=== PATIENT | female | born 1955 | race African-American/Black ===

== ENCOUNTER → 2017-03-15 | Outpatient (CLI) | payer BC, OTHER ==
--- NOTE | 2017-03-15 10:35 | RAD ---
Exam performed: 2 views of the chest. Indication: SHORTNESS OF BREATH, LEFT SIDED CHEST PAIN X 1 DAY Date of Service:03/15/2017 2:00 AM . Comparison : One view chest from [id number] Findings: PA and lateral radiographs of the chest reveal a normal cardiomediastinal contour. Apparent opacity in the left hilum is probably vascular related to previous exam. The lungs are clear. Linear bibasal opacities likely atelectasis No pleural fluid is seen. The visualized osseous structures are unremarkable. Impression: No acute cardiopulmonary process seen.
== END | disposition home or self-care (01) ==
LOC: DXRADRC 10:21
PROVIDERS: ATTEND Physician Assistant Medical
DX: R07.89 Other chest pain (principal); R06.02 Shortness of breath
CPT/HCPCS: 71020

== ENCOUNTER → 2019-04-17 | Outpatient (CLI) | payer OTHER | END | disposition home or self-care (01) | LOC: PMG 15:37 | PROVIDERS: ATTEND Family Medicine | DX: R07.9 Chest pain, unspecified (principal) | CPT/HCPCS: 36415; 82553; 84484 ==

== ENCOUNTER → 2021-04-14 | Day surgery (SDC) | payer OTHER ==
[~2021-04-14] MED LIST: AMLO5TAB4 PO; ASPI-630 PO; ATOR20TA PO; CELE200C PO; CYCL5TAB PO; DULO30CA2 PO; HYDR-2145 PO; IPRATRPIUM/ALBUTEROL 0.5/2.5MG 3 ML NEBU. NEB PRN; IV RINGERS SOLUTION,LACTATED 1,000 ML IV SCH; LIDOCAINE 2% PF 5 ML VIAL. ONE; LOSA100T14 PO; MELA10CA PO; METF500T16 PO; MIDAZOLAM HCL PF 2 MG/2 ML VIAL. IV ONE; MULT-445 PO; ONDANSETRON PF 4 MG/2 ML VIAL. IV PRN; PANT40TA6 PO; PROPOFOL 10,000 MCG/ML (20ML) VIAL IV ONE; [UNRECOGNIZED DRUG - OTHER] PO
[2021-04-14 11:44] VITALS: BP 117/72
== END | disposition home or self-care (01) ==
LOC: SURG 09:18
PROVIDERS: ATTEND Internal Medicine Gastroenterology
DX: D50.9 Iron deficiency anemia, unspecified (principal); K64.8 Other hemorrhoids; K63.5 Polyp of colon; I10 Essential (primary) hypertension; K21.9 Gastro-esophageal reflux disease without esophagitis; M81.0 Age-related osteoporosis without current pathological fracture; E11.9 Type 2 diabetes mellitus without complications; E78.00 Pure hypercholesterolemia, unspecified; Z88.8 Allergy status to other drugs, medicaments and biological substances; Z79.899 Other long term (current) drug therapy; Z90.710 Acquired absence of both cervix and uterus; Z98.890 Other specified postprocedural states; Z88.0 Allergy status to penicillin; Z79.82 Long term (current) use of aspirin
CPT/HCPCS: 45385; 82947; J2001; J2704; J7120; 45380